=== PATIENT | male | born 1980 | race Caucasian/White ===

== ENCOUNTER 2020-04-14 14:43 | Emergency (ER) | payer OTHER ==
--- OUTSIDE RECORDS SUMMARY | 2020-04-14 14:46 | XMS REPORT | Continuity of Care Document ---
:1980 Author Organization [facility] t Address [address] [place] [address] Care Team Providers Name Role Phone Carmelita Grossman MD Attending Clinician Paul EPSTEIN Attending Clinician Unavailable Problems This patient has no known problems. Allergies, Adverse Reactions, Alerts This patient has no known allergies or adverse reactions. Medications This patient has no known medications. Procedures This patient has no known procedures. Encounters Start End Encounter Admission Attending Care Care Encounter Source Date/Time Date/Time Type Type Clinicians Facility Department ID 2019-12-22 2019-12-22 Telephone PRISCILA Grossman [id number] 00:00:00 00:00:00 Irlanda Norman SPECIALTY [id number] [facility] [id number] CENTER AT [phone] [address] 2019-12-15 2019-12-15 Urgent PRISCILA Grossman [id number] 11:53:20 12:08:20 Care Irlanda Norman SPECIALTY [id number] [facility] [id number] CENTER AT [phone] [address] 2019-12-15 2019-12-15 Nurse Smita Miller [id number] 00:00:00 00:00:00 Triage ALFRED [id number] [facility] [phone] [id number] Results This patient has no known results.
--- NOTE | 2020-04-14 15:23 | ER ---
Nurse's Notes [facility] Name: Joel Camarena Age: 39 yrs Sex: Male : 1980 Arrival Date: 04/14/2020 Time: 14:48 Bed 15 Private MD: Diagnosis: Acute suppurative otitis media-left Presentation: 04/14 14:53 Chief complaint: Patient states: L ear pain since night. Hx of ear surgery and ca1 ear tubes in 2012 and 2018 cause of fluids on the L ear. It is very tender at this time. Denies fever, denies drainage from L ear. Coronavirus screen: Client denies travel out of the [place] in the last 14 days. At this time, the client does not indicate any symptoms associated with coronavirus-19. Ebola Screen: Patient negative for fever greater than or equal to 101.5 degrees Fahrenheit, and additional compatible Ebola Virus Disease symptoms Patient denies exposure to infectious person. Patient denies travel to an Ebola-affected area in the 21 days before illness onset. No symptoms or risks identified at this time. Initial Sepsis Screen: Does the patient meet any 2 criteria? No. Patient's initial sepsis screen is negative. Does the patient have a suspected source of infection? No. Patient's initial sepsis screen is negative. Risk Assessment: Do you want to hurt yourself or someone else? Patient reports no desire to harm self or others. Onset of symptoms was April 14, 2020. 14:53 Method Of Arrival: Ambulatory ca1 14:53 Acuity: TAMMY 4 ca1 Historical: - Allergies: 14:56 No Known Allergies; ca1 - Home Meds: 14:56 Psych Meds [Active]; ca1 - PMHx: 14:56 Bipolar disorder; ca1 - PSHx: 14:56 Ear Tubes; ca1 - Immunization history:: Adult Immunizations up to date. - Social history:: Smoking status: Patient reports the use of cigarette tobacco products, denies chronic smoking, but will smoke occasionally. Screenin:31 Abuse screen: Denies threats or abuse. Nutritional screening: No deficits noted. jd3 Tuberculosis screening: No symptoms or risk factors identified. Fall Risk Ambulatory Aid- None/Bed Rest/Nurse Assist (0 pts). Gait- Normal/Bed Rest/Wheelchair (0 pts) Mental Status- Oriented to own ability (0 pts). Total Robb Fall Scale indicates No Risk (0-24 pts). Assessment: 15:30 General: Appears in no apparent distress. uncomfortable, Behavior is calm, cooperative, jd3 appropriate for age. Pain: Complains of pain in left ear Quality of pain is described as sharp. Neuro: Level of Consciousness is awake, alert, obeys commands, Oriented to person, place, time, situation. Cardiovascular: Capillary refill < 3 seconds Patient's skin is warm and dry. Respiratory: Airway is patent Respiratory effort is even, unlabored, Respiratory pattern is regular, symmetrical, Denies cough, shortness of breath. GI: No signs and/or symptoms were reported involving the gastrointestinal system. : No signs and/or symptoms were reported regarding the genitourinary system. EENT: Tympanic membrane reddened on left ear Reports pain in left ear. 15:31 Reassessment: reported understanding of discharge instructions. jd3 Vital Signs: 14:53 BP 123 / 86; Pulse 85; Resp 16 S; Temp 98.2(O); Pulse Ox 98% on R/A; Weight 92.53 kg ca1 (R); Height 5 ft. 8 in. (172.72 cm) (R); Pain 4/10; 14:53 Body Mass Index 31.02 (92.53 kg, 172.72 cm) ca1 ED Course: 14:48 Patient arrived in ED. bg2 14:55 Triage completed. ca1 14:56 Arm band placed on right wrist. ca1 15:09 [facility] cp 15:09 Mark Villegas MD is Attending Physician. cp 15:20 Feroz Pagan, TETE is Primary Nurse. jd3 15:22 Andie Caraballo MD is Referral Physician. cp 15:31 Patient has correct armband on for positive identification. Bed in low position. Call jd3 light in reach. Side rails up X 1. Pulse ox on. NIBP on. 15:32 No provider procedures requiring assistance completed. Patient did not have IV access jd3 during this emergency room visit. Administered Medications: No medications were administered Outcome: 15:23 Discharge ordered by . cp 15:32 Discharged to home ambulatory. jd3 15:32 Condition: stable 15:32 Discharge instructions given to patient, Instructed on discharge instructions, follow up and referral plans. medication usage, Demonstrated understanding of instructions, follow-up care, medications, Prescriptions given X 2. 15:33 Patient left the ED. jd3 Signatures: Cassy Xie2 Mark Perez PA PA cp Davies, Jonathon, RN RN jd3 Laine Singh RN RN ca1
--- NOTE | 2020-04-14 15:23 | EDPHYS ---
Physician Documentation [facility] Name: Joel Camarena Age: 39 yrs Sex: Male : 1980 Arrival Date: 04/14/2020 Time: 14:48 Bed 15 Private MD: ED Physician Mark Villegas HPI: 04/14 15:17 This 39 yrs old Male presents to ER via Ambulatory with complaints of Ear cp Pain. 15:17 The patient presents with drainage, that is purulent, pain, that is acute. The cp complaints affect the left ear. Onset: The symptoms/episode began/occurred 3 day(s) ago. Associated signs and symptoms: Pertinent negatives: cough, fever, rhinorrhea, sinus trouble, shortness of breath, sore throat, vomiting. Severity of symptoms: in the emergency department the symptoms are unchanged despite home interventions. Historical: - Allergies: 14:56 No Known Allergies; ca1 - Home Meds: 14:56 Psych Meds [Active]; ca1 - PMHx: 14:56 Bipolar disorder; ca1 - PSHx: 14:56 Ear Tubes; ca1 - Immunization history:: Adult Immunizations up to date. - Social history:: Smoking status: Patient reports the use of cigarette tobacco products, denies chronic smoking, but will smoke occasionally. ROS: 15:18 ENT: Positive for drainage from ear(s), ear pain, Negative for sinus congestion, sinus cp pain, sore throat, difficulty swallowing, difficulty handling secretions. 15:18 Respiratory: Negative for cough, shortness of breath, wheezing. 15:18 Abdomen/GI: Negative for abdominal pain, nausea, vomiting, and diarrhea. 15:18 Skin: Negative for rash. 15:18 Neuro: Negative for headache. 15:18 All other systems are negative. Exam: 15:18 Head/Face: Normocephalic, atraumatic. cp 15:18 Constitutional: The patient appears in no acute distress, alert, awake, non-toxic, well developed, well nourished. 15:18 Eyes: Periorbital structures: appear normal, Conjunctiva: normal, no exudate, no injection, Lids and lashes: appear normal, bilaterally. 15:18 ENT: External ear(s): pain with movement, that is mild, of the left ear canal, Ear canal(s): erythema, that is minimal, of the left canal, purulent discharge, that is moderate, in the left canal, swelling, that is minimal, of the left canal, TM's: bulging, on the left, erythema, that is mild, on the left, PE tubes visualized. left in place patent and draining Examination of the other ear shows no obvious abnormality, Nose: is normal, Posterior pharynx: Airway: no evidence of obstruction, patent. 15:18 Neck: ROM/movement: is normal, is supple, no meningismus, no nuchal rigidity, Lymph nodes: no appreciated lymphadenopathy. 15:18 Chest/axilla: Inspection: normal. 15:18 Cardiovascular: Rate: normal. 15:18 Respiratory: the patient does not display signs of respiratory distress, Respirations: normal, no use of accessory muscles, no retractions, labored breathing, is not present. 15:18 Skin: no rash present. Vital Signs: 14:53 BP 123 / 86; Pulse 85; Resp 16 S; Temp 98.2(O); Pulse Ox 98% on R/A; Weight 92.53 kg ca1 (R); Height 5 ft. 8 in. (172.72 cm) (R); Pain 4/10; 14:53 Body Mass Index 31.02 (92.53 kg, 172.72 cm) ca1 MDM: 15:10 Patient medically screened. [facility] 15:23 Differential diagnosis: otitis media, otitis externa, ruptured TM, foreign body, cp cerumen impaction. 15:23 Data reviewed: vital signs, nurses notes, and as a result, I will discharge patient. cp Counseling: I had a detailed discussion with the patient and/or guardian regarding: the historical points, exam findings, and any diagnostic results supporting the discharge/admit diagnosis, the need for outpatient follow up, an ENT specialist, to return to the emergency department if symptoms worsen or persist or if there are any questions or concerns that arise at home. Administered Medications: No medications were administered Disposition: 15:35 Chart complete. cp 04/15 07:30 Co-signature as Attending Physician, Mark Villegas MD I agree with the assessment and [facility] plan of care. Disposition: 04/14/20 15:23 Discharged to Home. Impression: Acute suppurative otitis media - left. - Condition is Stable. - Discharge Instructions: Ear Drainage, Ear Drops, Adult, Otitis Media, Adult. - Prescriptions for Augmentin 875- 125 mg Oral Tablet - take 1 tablet by ORAL route every 12 hours for 10 days; 20 tablet. Ciprodex 0.3- 0.1 % Otic Drops, Suspension - instill 4 drops by OTIC route every 12 hours for 7 days , for ears ONLY. Instill drops in left ear canal as directed; 1 Container. - Medication Reconciliation Form, Thank You Letter, Antibiotic Education, Prescription Opioid Use form. - Follow up: Andie Caraballo MD; When: 2 - 3 days; Reason: Recheck today's complaints. - Problem is new. - Symptoms are unchanged. Signatures: Mark Villegas MD MD cha Page, Corey, PA PA cp Davies, Jonathon, RN RN jd3 Laine Singh RN RN ca1 Corrections: (The following items were deleted from the chart) 04/14 15:33 15:23 04/14/2020 15:23 Discharged to Home. Impression: Acute suppurative otitis media - jd3 left. Condition is Stable. Forms are Medication Reconciliation Form, Thank You Letter, Antibiotic Education, Prescription Opioid Use. Follow up: Andie Caraballo; When: 2 - 3 days; Reason: Recheck today's complaints. Problem is new. Symptoms are unchanged. cp
[2020-04-14 15:40] VITALS: BP 123/86; TEMP 98.2; O2SAT 98
== END 2020-04-14 15:33 | disposition home or self-care (01) ==
LOC: ER 14:43
DX: H66.002 Acute suppurative otitis media without spontaneous rupture of ear drum, left ear (principal); F31.9 Bipolar disorder, unspecified; F17.210 Nicotine dependence, cigarettes, uncomplicated
CPT/HCPCS: 99283